=== PATIENT | male | born 1990 | race Caucasian/White ===

== ENCOUNTER → 2019-07-21 | Outpatient (CLI) | payer BC ==
--- NOTE | 2019-07-22 04:32 | CT ---
EXAMINATION TYPE: CT soft tissue neck w con DATE OF EXAM: 07/21/2019 COMPARISON: None HISTORY: 28-year-old male dysphagia, neck swelling TECHNIQUE: Contiguous axial scanning of the soft tissues of the neck performed with IV Contrast, kumar ent injected with 100 mL of Isovue 300. Coronal/sagittal reconstructions performed. CT DLP: 647.9 mGycm Automated exposure control for dose reduction was used. FINDINGS: Visualized upper thorax shows very direct takeoff of the left vertebral artery directly from the aort ic arch. Visualized intracranial structures, orbits and globes, paranasal sinuses, and mastoid air cells appea r well-pneumatized. There appears to be dental carry involving the right maxillary third molar. Nasopharynx and oropharynx appear clear. No prevertebral soft tissue thickening. Epiglottis appears normal. The glottic and subglottic structures as well as the tracheal column and visualized upper lungs appea r clear. The thyroid gland, submandibular glands, and parotid glands appear satisfactory. A few prominent left upper cervical lymph nodes measure up to 1.2 cm in a nonspecific, refer to coron al image 29 and axial images 48 and 55. Additional scattered small lymph nodes are present on both sides of the neck. No suspicious neck masses identified Bones: No osseous obstructive process. IMPRESSION: 1. SOME PROMINENT BUT NONENLARGED LEFT UPPER CERVICAL LYMPH NODES MEASURING UP TO 1.2 CM SHORT AXIS. PROBABLY REACTIVE/POST INFLAMMATORY. 2. OTHERWISE, NO SUSPICIOUS NECK MASS IDENTIFIED. IF THERE IS PERSISTENT CLINICAL CONCERN, THE EXAM C AN BE REVIEWED WITH DIRECTED ATTENTION.
== END | disposition home or self-care (01) ==
LOC: RADCTMAIN 16:36
PROVIDERS: ATTEND Otolaryngology
DX: R59.0 Localized enlarged lymph nodes (principal)
CPT/HCPCS: 70491; Q9967

== ENCOUNTER → 2019-07-29 | Outpatient (CLI) | payer BC ==
--- NOTE | 2019-07-29 20:56 | CONS ---
CONSULTATION DATE OF SERVICE: 07/29/2019 This 28-year-old gentleman has been evaluated in the sleep center for possible obstructive sleep apnea-hypopnea syndrome. HISTORY OF PRESENT ILLNESS/SLEEP-WAKE EVALUATION: Patient's usual sleep schedule on weekdays is from around 8:30 p.m. until 7 a.m. and on weekends from 10 p.m. until 9 a.m. No problems with falling asleep, although he has a TV set in the bedroom. He sleeps in different positions. He snores loudly and wakes up from sleep up to 5 times with nocturia. No history of hypnagogic hallucinations, sleep paralysis or cataplexy. In the morning he wakes up tired, has difficulties paying attention, falling asleep during the day, worries about his sleep. [place] Sleepiness Scale is significantly increased at 16. He may take one nap at lunchtime; usually does not feel refreshed after a nap and usually does not see dreams during a nap. PAST MEDICAL HISTORY: Positive for headaches, PTSD, rhinitis. PAST SURGICAL HISTORY: None. MEDICATIONS: Nasacort. Recently stopped using Zoloft. SOCIAL HISTORY: Negative for smoking or using alcohol. FAMILY HISTORY: Hypertension, hyperlipidemia, arthritis, lung problems, snoring, headaches, thyroid problems. REVIEW OF SYSTEMS: Multiple awakenings from sleep. Tiredness and sleepiness during the day. PHYSICAL EXAMINATION: GENERAL: A pleasant gentleman without distress. VITAL SIGNS: BP 122/71, HR 89, RR 16, height 5 feet 10 inches, weight 262.0, body mass index 37.5, temperature 98.1, oxygen saturation at room air 96%. HEENT: PERRLA, EOMI. Evaluation of oropharynx showed tongue protrudes midline. Very short distance between soft palate and posterior pharyngeal wall. Restriction of nasal breathing. Small nasal passages. Some redness of the skin of the face. NECK: Supple. No JVD. Thyroid is not palpable. Wide neck; 17-1/2 inches in circumference. LUNGS: Clear to percussion and to auscultation. Good air exchange. No wheezing or rhonchi. HEART: S1, S2 regular. No murmurs, gallops or rubs. ABDOMEN: Slightly obese. EXTREMITIES: No clubbing or cyanosis. DIRECTOR OF EDUCATION: Awake, alert, and oriented X3. Cranial nerves 2 to 7 intact. There is no fasciculation or atrophy. noted. No focal deficits observed. IMPRESSION: 1. Loud snoring, multiple awakenings from sleep with nocturia, short distance between soft palate and posterior pharyngeal wall, restriction of nasal breathing, wide neck, excessive daytime sleepiness; obstructive sleep apnea-hypopnea syndrome. 2. Significant excessive daytime sleepiness with [place] Sleepiness Scale 16, dictating necessity to include hypersomnia in differential diagnosis. 3. History of post-traumatic stress disorder. 4. Restriction of nasal breathing; rhinitis. 5. Episodes of headaches, possibly migraines. PLAN: 1. Home sleep apnea test for evaluation of patient's breathing during sleep. 2. CPAP/BiPAP titration if sleep study confirms obstructive sleep apnea-hypopnea syndrome. 3. Preferable position during sleep on the side. 4. No driving if patient feels any sleepiness. 5. I will see patient for follow up visit to explain results of testing and following plan. We will consider proceeding with multiple sleep latency test if the sleep study is negative for obstructive sleep apnea-hypopnea syndrome. Thank you very much for referring this patient for consultation. Sincerely, Kevin Estrada MD, PhD, FAASM Diplomat of [employer] [employer] Ass[employer]or of [facility] [place] MMODL / IJN: [id number] /
== END | disposition home or self-care (01) ==
LOC: SLEEP 15:41
PROVIDERS: ATTEND Internal Medicine
DX: R06.83 Snoring (principal); R51 Headache; J34.89 Other specified disorders of nose and nasal sinuses; Z86.59 Personal history of other mental and behavioral disorders; Z79.899 Other long term (current) drug therapy
CPT/HCPCS: 99211

== ENCOUNTER → 2019-12-17 | Outpatient (CLI) | payer BC ==
--- NOTE | 2019-12-18 05:43 | SFUN ---
SLEEP CENTER FOLLOW UP NOTE DATE OF SERVICE: 12/17/2019 This is a 29-year-old gentleman who has been followed in sleep center for treatment of obstructive sleep apnea-hypopnea syndrome. In July of 2019, patient had home sleep apnea test which showed extremely severe sleep apnea with apnea-hypopnea index 101.7 and oxygen desaturation to 55%. I explained results of sleep study to patient in detail. Presently he is on treatment with CPAP and he is able to use CPAP equipment every night for the whole night. I checked CPAP unit, range of the pressure 5 to 20 with average pressure of 15.1 cm of water. Usage 23 out of 30 nights for more than 4 hours with average usage 5.2 hours per night. Apnea-hypopnea index is only 2.1, which is normal. Leak is borderline 20 L/minute. MEDICATIONS: Nasacort. PHYSICAL EXAMINATION: GENERAL: gentleman without distress. VITAL SIGNS: BP 131/83, HR 78, RR 16, weight 258, temp 98.0, oxygen saturation on room air 96%. HEENT: PERRLA, EOMI. Oropharynx showed short distance between soft palate and posterior pharyngeal wall. NECK: Supple, no JVD. Thyroid is not palpable. LUNGS: Clear to percussion and to auscultation. Good air exchange. No wheezing or rhonchi. HEART: S1, S2 regular. No murmurs, gallops, or rubs. ABDOMEN: Obese. EXTREMITIES: No clubbing or cyanosis. INVENTORY ANALYST: Awake, alert, and oriented X3. Cranial nerves 2 to 7 intact. There is no fasciculation or atrophy. noted. No focal deficits observed. IMPRESSION: 1. Extremely severe obstructive sleep apnea-hypopnea syndrome on control with CPAP. Patient demonstrated good compliance with treatment, benefiting from treatment. 2. Posttraumatic stress disorder. 3. Headaches. 4. Restriction of nasal breathing. PLAN: 1. Patient will continue to use CPAP equipment every night for the whole night. 2. Losing weight. 3. Sleep hygiene with regular time in bed for 7-1/2 to 8 hours. 4. No driving if feeling sleepiness. 5. Follow-up visit in 6 months or earlier if patient has any problems. Thank you very much for allowing me to participate in management of your patient. Sincerely, Kevin Estrada MD, PhD, FAASM Diplomat of [place] [employer] Network Project Manager of [facility] [place] MMODL / IJN: [id number] /
== END | disposition home or self-care (01) ==
LOC: SLEEP 15:27
PROVIDERS: ATTEND Internal Medicine
DX: G47.33 Obstructive sleep apnea (adult) (pediatric) (principal); R51 Headache; F43.10 Post-traumatic stress disorder, unspecified; Z79.899 Other long term (current) drug therapy